=== PATIENT | male | born 1965 | race Caucasian/White ===

== ENCOUNTER 2019-06-08 12:12 | Day surgery (SDC) | payer OTHER ==
[~2019-06-08] VITALS: Ht 167.6 cm; Wt 73.4 kg
[2019-06-08 13:45] VITALS: Ht 167.6 cm; Wt 73.4 kg
[2019-06-08 13:50] VITALS: BP 155/87; PULSE 60; RESP 18
[2019-06-08] MEDS ORDERED: FENTAnyl 50 MCG/ML VIAL ONE (14:21)
[2019-06-08] MEDS ORDERED: MIDAZOLAM 1 MG/ML 2 ML INJ ONE ×2 (14:21)
[2019-06-08 14:44] VITALS: BP 112/73; PULSE 54; RESP 14
== END 2019-06-08 15:09 | disposition home or self-care (01) ==
LOC: GIL 12:12
PROVIDERS: ATTEND Internal Medicine
DX: Z12.11 Encounter for screening for malignant neoplasm of colon (principal); K57.30 Diverticulosis of large intestine without perforation or abscess without bleeding
CPT/HCPCS: 45378; J2250; J3010